=== PATIENT | female | born 1935 ===

== ENCOUNTER 2021-08-29 13:18 | Outpatient (CLI) | payer MEDICARE, BC ==
[2021-08-29 14:40] LABS: Hemoglobin 11.4 g/dL (12.0-15.5); Mean Corpuscular HGB CONC 31.3 g/dL (32.0-36.0); Mean Corpuscular Hemoglobin 29.1 pg (27.0-33.0); Mean Corpuscular Volume 92.9 fl (81.6-98.3); Platelet Count 328 10x3/uL (150-450); RBC Distribution Width 14.2 % (11.5-14.5); Red Blood Cell (RBC) Count 3.92 10x6/uL (3.90-5.03)
[2021-08-29 15:04] LABS: Prothrombin Time 11.3 sec (9.5-12.1)
[2021-08-29 15:05] LABS: Anion Gap 16 mmol/L (10-20); BUN (Urea Nitrogen) 24 mg/dL (9.8-20.1); Calc. Creatinine Clearance 0 mL/min (70-130); Calcium 9.5 mg/dL (7.8-10.44); Carbon Dioxide 23 mmol/L (23-31); Chloride 104 mmol/L (98-107); Glucose 107 mg/dL (83-110); Sodium 138 mmol/L (136-145)
[2021-08-29 23:56] LABS: SARS-CoV-2 PCR by NAA Not Detected (NotDetected)
== END 2021-08-29 13:19 | disposition home or self-care (01) ==
LOC: LABBT 13:18
PROVIDERS: ATTEND Internal Medicine Cardiovascular Disease
DX: Z01.812 Encounter for preprocedural laboratory examination (principal); I44.2 Atrioventricular block, complete; Z20.822 Contact with and (suspected) exposure to COVID-19
CPT/HCPCS: 80048; 85027; 85610; U0003; U0005

== ENCOUNTER 2021-09-01 06:04 | Day surgery (SDC) | payer MEDICARE, BC ==
[2021-08-30 14:54] VITALS: BMI 16.6
[2021-09-01] MEDS ORDERED: Vancomycin (BATCH) 1.5 GRAM/300 ML BAG ONE (06:23)
[2021-09-01] MEDS ORDERED: Lidocaine 1% (PF) 30 ML VIAL ONE (06:33)
[2021-09-01] MEDS ORDERED: Gentamicin 80 MG/100 ML BAG ONE ×2 (06:33→06:35)
[2021-09-01] MEDS ORDERED: CEFAZOLIN 1 GM VIAL ONE (06:35)
[2021-09-01] MEDS ORDERED: Fentanyl 100 MCG/2 ML VIAL ONE (07:21)
[2021-09-01] MEDS ORDERED: Midazolam HCl 2 mg/2 ml Vial ONE (07:21)
== END 2021-09-01 12:46 | disposition home or self-care (01) ==
LOC: SDC 06:04
PROVIDERS: ATTEND Internal Medicine Cardiovascular Disease
PROC: 0JPT0PZ Removal of Cardiac Rhythm Related Device from Trunk Subcutaneous Tissue and Fascia, Open Approach (ICD-10-PCS; principal; 2021-09-01)
PROC: 0JH606Z Insertion of Pacemaker, Dual Chamber into Chest Subcutaneous Tissue and Fascia, Open Approach (ICD-10-PCS; 2021-09-01)
PROC: 3E0102A Introduction of Anti-Infective Envelope into Subcutaneous Tissue, Open Approach (ICD-10-PCS; 2021-09-01)
DX: Z45.010 Encounter for checking and testing of cardiac pacemaker pulse generator [battery] (principal); I49.5 Sick sinus syndrome; I44.2 Atrioventricular block, complete; I48.0 Paroxysmal atrial fibrillation; I48.3 Typical atrial flutter; E78.5 Hyperlipidemia, unspecified; I10 Essential (primary) hypertension; Z86.73 Personal history of transient ischemic attack (TIA), and cerebral infarction without residual deficits; Z79.01 Long term (current) use of anticoagulants; Z79.899 Other long term (current) drug therapy
CPT/HCPCS: J0690; J1580; J2001; J2250; J3010; J3370